=== PATIENT | male | born 1945 | race Caucasian/White ===

== ENCOUNTER 2017-09-13 19:43 | Emergency (ER) | payer OTHER ==
[~2017-09-13] VITALS: Ht 172.7 cm; Wt 86.2 kg
[2017-09-13] MEDS ORDERED: Motrin,Rufen800 MG PO (21:37)
[2017-09-13] MEDS ORDERED: Orphenadrine C100 MG PO (21:37)
== END 2017-09-13 21:45 | disposition home or self-care (01) ==
LOC: ED 19:43
DX: S16.1XXA Strain of muscle, fascia and tendon at neck level, initial encounter (principal); Z88.8 Allergy status to other drugs, medicaments and biological substances; Z88.5 Allergy status to narcotic agent; V87.7XXA Person injured in collision between other specified motor vehicles (traffic), initial encounter; Y93.89 Activity, other specified; Y92.89 Other specified places as the place of occurrence of the external cause; Y99.8 Other external cause status

== ENCOUNTER → 2018-04-19 | Outpatient (CLI) | payer OTHER, MEDICARE ==
[~2018-04-19] MED LIST: Motrin,Rufen800 MG PO; Orphenadrine C100 MG PO
== END | disposition home or self-care (01) ==
LOC: MRI 09:59 → EDBD 09:59 → MRI 10:00
DX: S86.011A Strain of right Achilles tendon, initial encounter (principal); M77.51 Other enthesopathy of right foot and ankle; M72.2 Plantar fascial fibromatosis; M65.871 Other synovitis and tenosynovitis, right ankle and foot; I10 Essential (primary) hypertension; E11.9 Type 2 diabetes mellitus without complications; V89.2XXA Person injured in unspecified motor-vehicle accident, traffic, initial encounter; Y93.89 Activity, other specified; Y92.89 Other specified places as the place of occurrence of the external cause; Y99.8 Other external cause status